=== PATIENT | female | born 2000 | race Caucasian/White ===

== ENCOUNTER 2018-01-07 14:06 | Emergency (ER) | payer OTHER ==
[~2018-01-07] VITALS: Ht 175.3 cm; Wt 56.9 kg
[2018-01-07 14:14] VITALS: BP 117/73
--- NOTE | 2018-01-07 14:20 | NUR ---
PT. ARRIVED TO ED W/ C/O COUGH X 2 WEEKS. PT. STATES " YESTERDAY AND TODAY THE COUGH HAS BEEN GETTING WORSE AND MY RIBS STARTED HURTING TODAY WHEN I BREATHE DEEP OR COUGH". DENIES ANY FEVERS OR CHILLS, RR EVEN AND UNLABORED. DRY AND UNPRODUCTIVE COUGH NOTED. DENIES ANY N/V/D. 4/10 PAIN IN RIBS THAT IS DULL AND AGGRAVATED WHEN BREATHING DEEP OR COUGHING. ER MD MADE AWARE. SAFETY PRECAUTIONS IMPLEMENTED. WILL CONTINUE TO MONITOR.
[2018-01-07] MEDS ORDERED: NACL 0.9% 1,000 ML IV ONE (14:35)
[2018-01-07 15:53] VITALS: BP 115/69
== END 2018-01-07 15:53 | disposition home or self-care (01) ==
LOC: MED 14:06
DX: R05 Cough (principal); R07.9 Chest pain, unspecified
CPT/HCPCS: 81002; 81025; 99283; J7030